=== PATIENT | female | born 1990 | race Caucasian/White ===

== ENCOUNTER 2019-04-05 19:15 | Emergency (ER) | payer BC, MEDICAID ==
[~2019-04-05] VITALS: Ht 165.1 cm; Wt 60.5 kg
[~2019-04-05 19:15] MED LIST: NOCURR
[2019-04-05] MEDS ORDERED: MECLIZINE HCL 25 MG TABLET PO ONE (21:00)
[2019-04-05 21:34] VITALS: BP 126/74
== END 2019-04-05 21:30 | disposition home or self-care (01) ==
LOC: EMS 19:20
DX: H81.399 Other peripheral vertigo, unspecified ear (principal); Z88.0 Allergy status to penicillin
CPT/HCPCS: 93005